=== PATIENT | female | born 1990 | race Caucasian/White ===

== ENCOUNTER 2020-10-08 15:57 | Observation (INO) | payer OTHER ==
[2020-10-08] MEDS ORDERED: FERR-89 PO (16:31)
[2020-10-08] MEDS ORDERED: FOLI-130 PO (16:31)
[2020-10-08 18:09] VITALS: BP 97/50
== END 2020-10-08 17:50 | disposition home or self-care (01) ==
LOC: 4S 15:57
PROVIDERS: ADMIT Obstetrics & Gynecology; ATTEND Obstetrics & Gynecology
DX: O41.03X0 Oligohydramnios, third trimester, not applicable or unspecified (principal); Z3A.33 33 weeks gestation of pregnancy
CPT/HCPCS: 59025; 76805; 99219

== ENCOUNTER 2020-10-11 16:06 | Observation (INO) | payer OTHER ==
[~2020-10-11] VITALS: Ht 165.1 cm; Wt 68.0 kg
[~2020-10-11 16:06] MED LIST: FERR-89 PO; FOLI-130 PO
[2020-10-11 16:48] VITALS: BP 98/53
[2020-10-11] MEDS ORDERED: PNV1TABL54 PO (17:01)
== END 2020-10-11 17:20 | disposition home or self-care (01) ==
LOC: 4S 16:06
PROVIDERS: ADMIT Obstetrics & Gynecology; ATTEND Obstetrics & Gynecology
DX: O41.03X0 Oligohydramnios, third trimester, not applicable or unspecified (principal); O69.81X0 Labor and delivery complicated by cord around neck, without compression, not applicable or unspecified; Z3A.34 34 weeks gestation of pregnancy
CPT/HCPCS: 59025; 99219

== ENCOUNTER 2020-10-11 18:11 | Observation (INO) | payer OTHER ==
[~2020-10-11] VITALS: Ht 165.1 cm; Wt 71.2 kg
[~2020-10-11 18:11] MED LIST changes: +PNV1TABL54 PO
[2020-10-18 16:29] VITALS: BP 97/52
== END 2020-10-18 17:15 | disposition home or self-care (01) ==
LOC: 4S 10-18 16:00
PROVIDERS: ADMIT Obstetrics & Gynecology; ATTEND Obstetrics & Gynecology
DX: O41.03X0 Oligohydramnios, third trimester, not applicable or unspecified (principal); O69.81X0 Labor and delivery complicated by cord around neck, without compression, not applicable or unspecified; Z3A.35 35 weeks gestation of pregnancy
CPT/HCPCS: 59025; 76811; 99219

== ENCOUNTER 2020-10-22 14:18 | Observation (INO) | payer OTHER ==
[~2020-10-22] VITALS: Ht 165.1 cm; Wt 72.6 kg
[2020-10-22 14:25] VITALS: BP 108/58
== END 2020-10-22 15:40 | disposition home or self-care (01) ==
LOC: 4S 14:18
PROVIDERS: ADMIT Obstetrics & Gynecology; ATTEND Obstetrics & Gynecology
DX: Z34.93 Encounter for supervision of normal pregnancy, unspecified, third trimester (principal); Z3A.35 35 weeks gestation of pregnancy
CPT/HCPCS: 59025; 76811; 99219

== ENCOUNTER 2020-10-25 16:00 | Observation (INO) | payer OTHER ==
[~2020-10-25] VITALS: Ht 165.1 cm; Wt 71.7 kg
[2020-10-25 16:27] VITALS: BP 103/52
== END 2020-10-25 17:00 | disposition home or self-care (01) ==
LOC: 4S 16:00
PROVIDERS: ADMIT Obstetrics & Gynecology; ATTEND Obstetrics & Gynecology
DX: O69.81X0 Labor and delivery complicated by cord around neck, without compression, not applicable or unspecified (principal); Z3A.36 36 weeks gestation of pregnancy
CPT/HCPCS: 59025; 76811; 99219

== ENCOUNTER 2020-11-20 17:54 | Observation (INO) | payer OTHER ==
[~2020-11-20] VITALS: Ht 165 cm; Wt 76.2 kg
[2020-11-22 19:39] LABS: COVID AG,FIA SOURCE NASOPHARYNGEAL
== END 2020-11-22 19:16 | disposition home or self-care (01) ==
LOC: 4S 11-22 19:10
PROVIDERS: ADMIT Obstetrics & Gynecology; ATTEND Obstetrics & Gynecology
DX: O48.0 Post-term pregnancy (principal); Z20.822 Contact with and (suspected) exposure to COVID-19; Z3A.40 40 weeks gestation of pregnancy
CPT/HCPCS: 87426; 99219

== ENCOUNTER 2020-11-23 19:15 | Inpatient (IN) | payer OTHER ==
[~2020-11-23] VITALS: Ht 165.1 cm; Wt 75.7 kg
[2020-11-23 19:27] VITALS: BP 120/56
[2020-11-23] MEDS ORDERED: RINGERS SOLUTION,LACTATED 1,000 ML IV PRN (20:45)
[2020-11-23] MEDS ORDERED: OXYGEN THERAPY IH SCH (20:45)
[2020-11-23] MEDS ORDERED: FentaNYL CITRATE PF 100 MCG/2 ML VIAL IVP PRN (20:45)
[2020-11-23] MEDS ORDERED: OXYTOCIN 30 UNITS/LACT RINGERS 500 ML IV ONE (20:45)
[2020-11-23] MEDS ORDERED: METHYLERGONOVINE MALEATE 0.2 MG/ML VIAL IM PRN (20:45)
[2020-11-23] MEDS ORDERED: METOCLOPRAMIDE HCL 5 MG/ML 2 ML VIAL IVP PRN (20:45)
[2020-11-23] MEDS ORDERED: DINOPROSTONE 10 MG VAGINAL SUPPOSITORY VG ONE (20:45)
[2020-11-23] MEDS ORDERED: CITRIC ACID/SODIUM CITRATE 30 ML SOLUTION UDCUP PO PRN (20:45)
[2020-11-23] MEDS: RINGERS SOLUTION,LACTATED 1,000 ML IV SCH (20:51)
[2020-11-23 21:07] LABS: BASOPHILS % (AUTO) 0.8 % (0.0-2.0); EOSINOPHILS % (AUTO) 1.9 % (1.0-6.0); HEMATOCRIT 36.8 % (36-46); HEMOGLOBIN 12.4 g/dL (12.0-16.0); LYMPHOCYTES # (AUTO) 1.8 K/uL (1.0-4.8); LYMPHOCYTES % (AUTO) 22.6 % (22.0-44.0); MEAN CORPUSCULAR HEMOGLOBIN 32.9 pg (26.0-34.0); MEAN CORPUSCULAR HGB CONC 33.8 G/dL (31.0-37.0); MEAN CORPUSCULAR VOLUME 97 fL (80-100); MONOCYTES # (AUTO) 0.7 K/uL (0.1-1.0); MONOCYTES % (AUTO) 9.4 % (2.0-9.0); NEUTROPHILS # (AUTO) 5.1 K/uL (1.8-7.7); NEUTROPHILS % (AUTO) 65.3 % (40.0-70.0); PLATELET COUNT (AUTO)-OB 186 K/uL (150-450); RED BLOOD CELL COUNT(AUTO) 3.79 MIL/uL (4.00-5.20)
[2020-11-24] MEDS: RINGERS SOLUTION,LACTATED 1,000 ML IV SCH ×4 (00:37→14:09)
[2020-11-24] MEDS ORDERED: -PHARMACY NOTE- MISC ONE (08:45)
[2020-11-24] MEDS ORDERED: DOCU-275 PO (08:59)
[2020-11-24] MEDS ORDERED: IBUP-2070 PO (09:00)
[2020-11-24] MEDS ORDERED: PERCT PO (09:02)
[2020-11-24] MEDS ORDERED: MISOPROSTOL 50 MCG TABLET VG ONE (09:30)
[2020-11-24] MEDS ORDERED: MISOPROSTOL 50 MCG TABLET PO SCH (09:30)
[2020-11-24] MEDS ORDERED: OXYTOCIN 30 UNITS/LACT RINGERS 500 ML IV ONE (13:45)
[2020-11-24] MEDS ORDERED: OXYTOCIN 30 UNITS/LACT RINGERS 500 ML IV PRN (13:45)
[2020-11-24] MEDS ORDERED: ROPIVACAINE HCL/PF 0.2% 100 ML ED ONE (13:46)
[2020-11-24] MEDS ORDERED: NALBUPHINE HCL 10 MG/ML VIAL IVP PRN (14:00)
[2020-11-24] MEDS ORDERED: ROPIVACAINE HCL/PF 0.2% 100 ML ED PRN (14:00)
[2020-11-24] MEDS ORDERED: ONDANSETRON HCL 4 MG/2 ML VIAL IVP PRN (14:00)
[2020-11-24] MEDS ORDERED: DiphenhydrAMINE HCL 50 MG/ML VIAL IVP PRN (14:00)
[2020-11-24] MEDS ORDERED: SODIUM CHLORIDE 0.9% 1,000 ML IV SCH (16:15)
[2020-11-24] MEDS ORDERED: LANOLIN 7 GM OINTMENT TP PRN (20:00)
[2020-11-24] MEDS ORDERED: BENZOCAINE 20%/MENTHOL 56 GM SPRAY CANISTER TP PRN (20:00)
[2020-11-24] MEDS ORDERED: GLYCERIN/WITCH HAZEL LEAF 40 PADS JAR TP PRN (20:00)
[2020-11-24] MEDS ORDERED: OxyCODONE HCL/ACETAMINOPHEN 5-325 MG TABLET PO PRN ×2 (20:00)
[2020-11-24] MEDS: MAGNESIUM HYDROXIDE SUSPENSION 30 ML UDCUP PO SCH (20:30)
[2020-11-24] MEDS ORDERED: SENNA/DOCUSATE SODIUM 8.6-50 MG TABLET PO PRN (20:30)
[2020-11-24] MEDS: IBUPROFEN 800 MG TABLET PO PRN (20:31)
[2020-11-24] MEDS: DOCUSATE SODIUM 100 MG CAPSULE PO SCH (20:31)
[2020-11-24] MEDS ORDERED: SENNA/DOCUSATE SODIUM 8.6-50 MG TABLET PO SCH (21:00)
[2020-11-25] MEDS: IBUPROFEN 800 MG TABLET PO PRN ×3 (02:30→15:49)
[2020-11-25] MEDS: MAGNESIUM HYDROXIDE SUSPENSION 30 ML UDCUP PO SCH (08:01)
[2020-11-25] MEDS: DOCUSATE SODIUM 100 MG CAPSULE PO SCH (08:01)
== END 2020-11-25 19:50 | disposition home or self-care (01) | DRG 768 ==
LOC: 4S 19:15 → PREOBSVTOIN 11-24 19:26
PROVIDERS: ADMIT Student in an Organized Health Care Education/Training Program; ATTEND Student in an Organized Health Care Education/Training Program
PROC: 10E0XZZ Delivery of Products of Conception, External Approach (ICD-10-PCS; principal; 2020-11-24)
PROC: 0DQP0ZZ Repair Rectum, Open Approach (ICD-10-PCS; 2020-11-24)
PROC: 10907ZC Drainage of Amniotic Fluid, Therapeutic from Products of Conception, Via Natural or Artificial Opening (ICD-10-PCS; 2020-11-24)
PROC: 0W8NXZZ Division of Female Perineum, External Approach (ICD-10-PCS; 2020-11-24)
PROC: 3E0R3BZ Introduction of Anesthetic Agent into Spinal Canal, Percutaneous Approach (ICD-10-PCS; 2020-11-24)
PROC: 00HU33Z Insertion of Infusion Device into Spinal Canal, Percutaneous Approach (ICD-10-PCS; 2020-11-24)
DX: O70.3 Fourth degree perineal laceration during delivery (principal); Z37.0 Single live birth; Z3A.40 40 weeks gestation of pregnancy
CPT/HCPCS: 85025; 86850; 86900; 86901; A9575; J2590; J2795; J7120